=== PATIENT | female | born 1965 | race African-American/Black ===

== ENCOUNTER → 2023-12-12 08:03 | Outpatient (REF) | payer OTHER, SELFPAY | LOC: WDC 08:03 | PROVIDERS: ATTENDING PHYSICIAN Family Medicine | DX: R92.8 Other abnormal and inconclusive findings on diagnostic imaging of breast (principal); N60.02 Solitary cyst of left breast | CPT/HCPCS: 76642 ==

== ENCOUNTER 2024-01-23 21:23 | Emergency (ER) | payer OTHER, SELFPAY ==
[2024-01-23 21:30] VITALS: BP 177/94
[2024-01-23 22:08] LABS: % Basophils 0.4 % (0-2); % Eosinophils 3.3 % (0-6); % Immature Granulocytes 0.1 % (0-0.5); % Lymphocytes 32.4 % (20.5-51.1); % Monocytes 6.6 % (1.7-9.3); % Neutrophils 57.2 % (42.2-75.2); Absolute Eosinophils 0.2 10^3/uL (0-0.7); Absolute Lymphocytes 2.2 10^3/uL (1.2-3.4); Absolute Monocytes 0.4 10^3/uL (0.1-0.6); Absolute Neutrophils 3.8 10^3/uL (1.4-6.5); Hematocrit 36.5 % (37.0-47.0); Hemoglobin 12.5 g/dL (12.0-16.0); Mean Corp Hgb Conc. 34.2 g/dL (33.0-37.0); Mean Corpuscular Hgb 27.4 pg (27.0-31.0); Mean Platelet Volume 10.3 fL (7.4-10.4); Nucleated Red Blood Cells % 0 %; Platelet Count 205 10^3/uL (130-400); Red Blood Cell Count 4.56 10^6/uL (4.20-5.40); Red Cell Dist. Width 13.2 % (11.5-14.5); White Blood Cell Count 6.7 10^3/uL (4.8-10.8)
[2024-01-23 22:13] LABS: ALT (SGPT) 44 U/L (0-35); AST (SGOT) 43 U/L (14-36); Albumin 4.3 g/dl (3.5-5.0); Alkaline Phosphatase 119 U/L (38-126); Blood Urea Nitrogen 15 mg/dl (7-17); Calcium 10.1 mg/dl (8.4-10.2); Carbon Dioxide 23 mmol/L (22-30); Chloride 104 mmol/L (98-107); Glucose 279 mg/dl (70-99); Potassium 3.7 mmol/L (3.5-5.1); Sodium 138 mmol/L (135-145); Total Bilirubin 0.3 mg/dl (0.2-1.3); Total Protein 7.1 g/dl (6.3-8.2); eGFR > 60.00
--- NOTE | 2024-01-23 22:15 | ED.GENMED ---
History of Present Illness
General
Chief Complaint: Chest Pain
Source: patient
Exam Limitations: none
Time Seen by Provider: 01/23/24 21:45
Nursing documentation reviewed up to this point in time: agreed with
Travel History
Have you had any contact with someone who has COVID-19?: No
Do you have any symptoms of coronavirus? Fever > 100 degrees, chills, cough, shortness of breath, sore throat, loss of taste or smell, muscle aches, or headache?: No
History of Present Illness
History of Present Illness:
The patient is a very pleasant 58-year-old female who reports intermittent chest pain since yesterday. Patient describes it as a pressure in her left chest. Is nonradiating. Patient reports it is not necessarily associated with breathing, eating
or movement. She denies any shortness of breath and cough. She denies history of PE and DVT.
Past History
Past History
ED Past Medical History: HTN, NIDDM and Other (Breast cancer, status postlumpectomy)
ED Past Surgical History: Gynecological (Left breast Lumpectomy), Orthopedic (Right rotator cuff repair) and Other (cataracts)
Social History
Tobacco: Non-smoker
Alcohol: None
Drug: None
Personal:
Living: with family
Employment: Other
Family History
Family History: Other
Review of Systems
Review of Systems
Allergies reviewed?: Yes
All Other Systems: ROS reviewed and negative except as documented in HPI and ROS
Constitutional: Reports no symptoms
EENT: Reports no symptoms
Respiratory: Reports no symptoms
Cardiac: Reports chest pain
ABD/GI: Reports no symptoms
: Reports no symptoms
Musculoskeletal: Reports no symptoms
Skin: Reports no symptoms
Neurological: Reports no symptoms
Endocrine: Reports no symptoms
Hematologic/Lymphatic: Reports no symptoms
Psychiatric: Reports no symptoms
Phy Exam
Physical Exam
Physical Exam:
Physical Exam
General: no apparent distress, not acutely ill , well and comfortable appearing
Neck: supple. no meningeal signs. normal psoterior pharynx
Heart: s1/s2 regular rate and rhythm, no murmur. equal radial pulses.
Lungs: no acute respiratory distress. clear bilaterally
Abdomen: normal bowel sounds. not tender. no CVAT. No pulsatile mass
Neuro: alert and oriented. no focal neurological deficits
Skin: no rash
Psychiatric: well kept. interactive and cooperative
Extremities: no edema. no calf tenderness. negative homans. good distal pulses
Scores
Heart Score for Chest Pain Patients
STEMI patient?: No
History: Slightly or Non-Suspicious
ECG: Nonspecific Repolarization
Age: >45 - <65 years
Risk Factors: >/= 3 Risk Factors or History of CAD
Troponin: </= Normal Limit
Heart Score for Chest Pain Patients: 4
Heart Score Risk: 20.3% MACE over next 6 weeks
Course
Orders/Labs/Results
Orders:
Orders
01/23/24 21:24
Electrocardiogram (*1) Urgent
Reason for Study: Shortness of Breath
EKG- Treatment ONCE
01/23/24 21:53
Complete Blood Count/With Diff Urgent
Comprehensive Metabolic Panel Urgent
01/23/24 22:38
D-Dimer Urgent
Troponin I Urgent
01/23/24 23:14
CR Chest - 2 Views Urgent
Comment:
Reason For Exam: CP
Abnormal Lab Results
01/23/24
21:53
Hct 36.5 L %
(37.0-47.0)
MCV 80.0 L fL
(81.0-99.0)
Glucose 279 H mg/dl
(70-99)
AST 43 H U/L
(14-36)
ALT 44 H U/L
(0-35)
01/23/24 21:53
01/23/24 21:53
Vital Signs
Initial and Last Documented VS:
Initial Vital Signs
Temp Pulse Resp BP Pulse Ox
98.2 F 93 18 177/94 98
01/23/24 21:30 01/23/24 21:30 01/23/24 21:30 01/23/24 21:30 01/23/24 21:30
Last Documented Vital Signs
Temp Pulse Resp BP Pulse Ox
98.2 F 96 16 182/93 100
01/23/24 21:30 01/23/24 23:00 01/23/24 23:00 01/23/24 23:00 01/23/24 23:00
MDM/Problems Addressed
Differential Diagnosis Includes:
Acute coronary syndrome, PE, gastritis
MDM/Problems Addressed:
Patient presents with acute chest pain
Chronic conditions affecting care: DM and HTN
Acute Exacerbation and/or Progression of Chronic Illness:
Given patient is acutely hyperglycemic and hypertensive, she is at increased risk of acute coronary syndrome
*Radiology
Radiology exam reviewed: preliminary read by ED provider (Chest x-ray read by me. No acute disease)
*Pulse Oximetry
Patient hypoxic: no
*EKG
Interpreted by ED Provider?: Yes
Interpretation: abnormal
Comparison EKG: no changes
Rate: normal
Rhythm: sinus
[place]: left axis deviation
Interval: normal interval
QRS Pattern: left vent hypertrophy
Ischemia: non-specific ST changes
*[employer] Interpretation
Rate: normal
Interpretation: normal
Rhythm: sinus
*Critical Care Note
Total Time (30-74mins, 75-104mins- exclusive of procedures): Not Applicable
Update Note
Update Note:
11:40 PM patient has been resting comfortably for hours, is conversational and smiling. EKG shows no acute changes. Troponin is normal. D-dimer is normal. Chest x-ray appears normal. Patient will be referred to chest pain hotline. In addition,
patient has a primary care appointment this coming Sunday.
ED Attending Note
-
Portions of this chart may have been created with voice recognition software.� Occasional wrong word or��sound alike� substitutions may have occurred due to the inherent limitations of voice recognition software.
Discharge Plan
Departure
Patient Disposition: Home (Routine Discharge)
Date of Disposition: 01/23/24
Time of Disposition: 23:40
Patient with high blood pressure during this ER visit?: Yes
Condition: Good
Covid-19: Not Applicable
Discharge Problem:
Chest pain in adult
Instructions: Chest Pain DCA Follow Up, BLOOD PRESSURE
Prescriptions:
No Action
cephalexin 500 mg capsule
500 mg PO TID 7 Days Qty: 21 0RF
naproxen 500 mg tablet
500 mg PO BID 10 Days Qty: 20 0RF
anastrozole 1 mg Tablet
1 mg PO DAILY
atenolol 25 mg Tablet
25 mg PO DAILY
metformin 1,000 mg Tablet
1,000 mg PO BID
amlodipine-valsartan 5-160 mg Tablet
1 tab PO DAILY
aspirin 81 mg Tablet
81 mg PO DAILY
albuterol sulfate 90 mcg/actuation HFA aerosol inhaler
2 puff INHALATION Q4H PRN (Reason: SHORTNESS OF BREATH )
hydrochlorothiazide 12.5 mg capsule
12.5 mg PO DAILY Qty: 30 0RF
Fluzone Quad [id number] (PF) 60 mcg (15 mcg x 4)/0.5 mL Syringe
0.5 ml IM .ONCE Qty: 5 0RF
Referrals:
Jordyn Moyer MD [Active] -
Myesha Light MD [Family Provider] -
Interventions
Interventions:
*Risk Screen - Suicide Last Done: 01/23/24 21:30
*General Assessment Last Done: 01/23/24 21:30
*Neglect/Abuse Screening Last Done: 01/23/24 21:30
ED- Cardiac Assessment Last Done: 01/23/24 21:50
Discharge Date and Time
Print Language: UKRAINIAN
[2024-01-23 23:00] VITALS: BP 182/93
[2024-01-23 23:03] LABS: D-Dimer < 0.27 ug/mlFEU (0.00-0.50)
[2024-01-23 23:08] LABS: Troponin I 0.014 ng/ml
== END 2024-01-24 00:01 | disposition home or self-care (01) ==
LOC: EMR 21:23
PROVIDERS: EMERGENCY PHYSICIAN Emergency Medicine; FAMILY PHYSICIAN Family Medicine
DX: R07.89 Other chest pain (principal); I10 Essential (primary) hypertension; E11.36 Type 2 diabetes mellitus with diabetic cataract; I25.10 Atherosclerotic heart disease of native coronary artery without angina pectoris; Z85.3 Personal history of malignant neoplasm of breast
CPT/HCPCS: 99283; 71046; 80053; 84484; 85025; 85379; 93005

== ENCOUNTER 2024-02-15 13:42 | Emergency (ER) | payer OTHER, SELFPAY ==
[2024-02-15 13:44] VITALS: BP 201/106
--- NOTE | 2024-02-15 15:22 | ED.GENMED ---
History of Present Illness
General
Chief Complaint: Cold/Flu/URI Symptoms
Source: patient
Exam Limitations: none
Time Seen by Provider: 02/15/24 15:11
Nursing documentation reviewed up to this point in time: agreed with
History of Present Illness
History of Present Illness:
Patient to ED with complaint of worsening cough. States she has had cold symptoms since sunday. Now feeling lightheaded and cough continues to worsen. INitially had a fever but that has resolved. Denies any SOB, n/v/d. No sick contacts. States
she was recently seen by her PCP for cp and found to have a new murmur. She is scheduled for a nuclear stress test. Advised by PCP to come to ED. No CP with these symptoms. Brought self to ED for eval
Past History
Past History
ED Past Medical History: Cancer (Breast), HTN, NIDDM and Other (Breast cancer, status postlumpectomy)
ED Past Surgical History: Gynecological (Left breast Lumpectomy), Orthopedic (Right rotator cuff repair) and Other (cataracts)
Social History
Tobacco: Non-smoker
Alcohol: None
Drug: None
Personal:
Living: with family
Employment: Other
Family History
Family History: Other
Review of Systems
Review of Systems
Allergies reviewed?: Yes
All Other Systems: ROS reviewed and negative except as documented in HPI and ROS
Constitutional: Reports no symptoms
EENT: Reports runny nose
Respiratory: Reports cough
Cardiac: Reports no symptoms
ABD/GI: Reports no symptoms
: Reports no symptoms
Musculoskeletal: Reports no symptoms
Skin: Reports no symptoms
Neurological: Reports weakness
Psychiatric: Reports no symptoms
Phy Exam
General Physical Exam
General Presentation: well appearing and no apparent distress
General age: appears stated age
General Skin: warm and dry
General Habitus: normal
General Mental: alert
Cardiovascular Exam
Cardiovascular Exam: regular rate/rhythm and no edema
Pulmonary Exam
Pulmonary Exam: no respiratory distress and chest non tender
Cough: coarse cough
Breath Sounds: Rhonchi: generalized (scattered)
Musculoskeletal Exam
Musculoskeletal Exam: full ROM and neuro vasc intact
Skin Exam
Skin Exam: normal color, warm/dry and no rash
Psychiatric Exam
Psychiatric Exam: normal mood/affect
Course
Orders/Labs/Results
Orders:
Orders
02/15/24 13:47
EKG [Electrocardiogram (*1)] Urgent
Reason for Study: Vertigo / Dizzy
EKG- Treatment ONCE
02/15/24 15:21
Ipratropium/Albuterol Sulfate [Duoneb] 3 ml INH R NOW STA
CR Chest - 2 Views Urgent
Comment:
Reason For Exam: cough
02/15/24 15:46
COVID-19 Antigen Urgent
Source: Nasal Swab
Complete Blood Count/With Diff Urgent
02/15/24 16:44
Comprehensive Metabolic Panel Urgent
02/15/24 17:52
Potassium Chloride Powder [Klor-Con] 40 meq PO NOW STA
Abnormal Lab Results
02/15/24 02/15/24
15:46 16:44
MPV 10.7 H fL
(7.4-10.4)
Immature Gran % 0.6 H %
(0-0.5)
Neutrophils % 42.0 L %
(42.2-75.2)
Potassium 3.3 L mmol/L
(3.5-5.1)
Carbon Dioxide 21 L mmol/L
(22-30)
Creatinine 0.5 L mg/dL
(0.6-1.0)
Glucose 104 H mg/dl
(70-99)
Calcium 10.6 H mg/dl
(8.4-10.2)
AST 72 H U/L
(14-36)
ALT 62 H U/L
(0-35)
02/15/24 15:46
02/15/24 16:44
Vital Signs
Initial and Last Documented VS:
Initial Vital Signs
Temp Pulse Resp BP Pulse Ox
98.4 F 92 18 201/106 98
02/15/24 13:44 02/15/24 13:44 02/15/24 13:44 02/15/24 13:44 02/15/24 13:44
Last Documented Vital Signs
Temp Pulse Resp BP Pulse Ox
98.4 F 94 16 168/85 98
02/15/24 13:44 02/15/24 16:15 02/15/24 16:15 02/15/24 16:12 02/15/24 16:15
*Radiology
Radiology exam reviewed: radiology read reviewed
*Pulse Oximetry
Patient hypoxic: no
*Critical Care Note
Total Time (30-74mins, 75-104mins- exclusive of procedures): Not Applicable
Update Note
Update Note:
Improved withnebulizer treatment. CXR neg for pneumonia. Will discharge home and continue albuterol nebulizer q4hr prn. Close follow upw ith PCP. Given instrutins on s/s to return to ED and she is agreeable to plan.,
ED Attending Note
-
Portions of this chart may have been created with voice recognition software.� Occasional wrong word or��sound alike� substitutions may have occurred due to the inherent limitations of voice recognition software.
Discharge Plan
Departure
Patient Disposition: Home (Routine Discharge)
Date of Disposition: 02/15/24
Time of Disposition: 17:55
Patient with high blood pressure during this ER visit?: No
Condition: Good
Covid-19: Not Applicable
Discharge Problem:
Bronchitis
Instructions: Acute Bronchitis, Adult (DC)
Prescriptions:
New
albuterol sulfate 2.5 mg /3 mL (0.083 %) solution for nebulization
2.5 mg inhalation Q4H PRN (Reason: shortness of breath or wheezing) Qty: 90 0RF
No Action
cephalexin 500 mg capsule
500 mg PO TID 7 Days Qty: 21 0RF
naproxen 500 mg tablet
500 mg PO BID 10 Days Qty: 20 0RF
anastrozole 1 mg Tablet
1 mg PO DAILY
atenolol 25 mg Tablet
25 mg PO DAILY
metformin 1,000 mg Tablet
1,000 mg PO BID
amlodipine-valsartan 5-160 mg Tablet
1 tab PO DAILY
aspirin 81 mg Tablet
81 mg PO DAILY
albuterol sulfate 90 mcg/actuation HFA aerosol inhaler
2 puff INHALATION Q4H PRN (Reason: SHORTNESS OF BREATH )
hydrochlorothiazide 12.5 mg capsule
12.5 mg PO DAILY Qty: 30 0RF
Fluzone Quad [id number] (PF) 60 mcg (15 mcg x 4)/0.5 mL Syringe
0.5 ml IM .ONCE Qty: 5 0RF
Referrals:
Myesha Light MD [Family Provider] - Follow up in 2-3 days
Interventions
Interventions:
*Risk Screen - Suicide Last Done: 02/15/24 18:21
*General Assessment Last Done: 02/15/24 13:44
*Neglect/Abuse Screening Last Done: 02/15/24 18:21
ED- Fall Risk Assessment Last Done: 02/15/24 16:45
*ED COVID-19 Vaccine History Last Done: 02/15/24 13:44
*Nursing Disposition Last Done: 02/15/24 18:21
ED- Pulmonary Assessment Last Done: 02/15/24 16:45
Discharge Date and Time
Discharge Date/Time: 02/15/24 18:22
Print Language: PANAMANIAN
[2024-02-15] MEDS: DUONEB 3 ML INH (15:47)
[2024-02-15 16:06] LABS: % Basophils 0.4 % (0-2); % Eosinophils 4.2 % (0-6); % Immature Granulocytes 0.6 % (0-0.5); % Lymphocytes 44.5 % (20.5-51.1); % Monocytes 8.3 % (1.7-9.3); Absolute Eosinophils 0.2 10^3/uL (0-0.7); Absolute Lymphocytes 2.2 10^3/uL (1.2-3.4); Absolute Monocytes 0.4 10^3/uL (0.1-0.6); Absolute Neutrophils 2.1 10^3/uL (1.4-6.5); Hematocrit 39.4 % (37.0-47.0); Hemoglobin 13.3 g/dL (12.0-16.0); Mean Corp Hgb Conc. 33.8 g/dL (33.0-37.0); Mean Corpuscular Hgb 27.7 pg (27.0-31.0); Mean Corpuscular Volume 82.1 fL (81.0-99.0); Mean Platelet Volume 10.7 fL (7.4-10.4); Nucleated Red Blood Cells % 0 %; Platelet Count 232 10^3/uL (130-400); Red Cell Dist. Width 12.9 % (11.5-14.5)
[2024-02-15 16:12] VITALS: BP 168/85
[2024-02-15 16:19] LABS: COVID-19 Antigen Negative (Negative)
[2024-02-15 17:42] LABS: ALT (SGPT) 62 U/L (0-35); AST (SGOT) 72 U/L (14-36); Albumin 4.9 g/dl (3.5-5.0); Alkaline Phosphatase 121 U/L (38-126); Blood Urea Nitrogen 12 mg/dl (7-17); Calcium 10.6 mg/dl (8.4-10.2); Carbon Dioxide 21 mmol/L (22-30); Chloride 105 mmol/L (98-107); Glucose 104 mg/dl (70-99); Potassium 3.3 mmol/L (3.5-5.1); Sodium 141 mmol/L (135-145); Total Bilirubin 0.5 mg/dl (0.2-1.3); eGFR > 60.00
[2024-02-15] MEDS: KLOR-CON 40 MEQ PO (17:57)
== END 2024-02-15 18:22 | disposition home or self-care (01) ==
LOC: EMR 13:42
PROVIDERS: Nurse Practitioner; EMERGENCY PHYSICIAN Emergency Medicine; FAMILY PHYSICIAN Family Medicine
DX: J40 Bronchitis, not specified as acute or chronic (principal); R01.1 Cardiac murmur, unspecified; I10 Essential (primary) hypertension; E11.36 Type 2 diabetes mellitus with diabetic cataract; Z85.3 Personal history of malignant neoplasm of breast
CPT/HCPCS: 99283; 94640; 71046; 80053; 85025; 87811; 93005

== ENCOUNTER → 2024-03-17 07:55 | Outpatient (REF) | payer OTHER, SELFPAY | LOC: DHCBC/DCA 07:55 | PROVIDERS: ATTENDING PHYSICIAN Internal Medicine Cardiovascular Disease; FAMILY PHYSICIAN Family Medicine | DX: I34.0 Nonrheumatic mitral (valve) insufficiency (principal) | CPT/HCPCS: 78452; 93017; A9500 ==

== ENCOUNTER → 2024-03-22 14:20 | Outpatient (REF) | payer OTHER, SELFPAY | LOC: WDC 14:20 | PROVIDERS: ATTENDING PHYSICIAN Family Medicine | DX: Z12.31 Encounter for screening mammogram for malignant neoplasm of breast (principal) | CPT/HCPCS: 77063; 77067 ==

== ENCOUNTER 2024-04-18 18:51 | Emergency (ER) | payer OTHER, SELFPAY ==
[2024-04-18 18:55] VITALS: BP 188/105
[2024-04-18 20:59] VITALS: BMI 28.9
[2024-04-18 21:04] VITALS: BP 193/94
[2024-04-18 21:18] LABS: % Basophils 0.3 % (0-2); % Eosinophils 0.2 % (0-6); % Immature Granulocytes 0.3 % (0-0.5); % Lymphocytes 7.3 % (20.5-51.1); % Monocytes 9.6 % (1.7-9.3); % Neutrophils 82.3 % (42.2-75.2); Absolute Lymphocytes 0.4 10^3/uL (1.2-3.4); Absolute Monocytes 0.6 10^3/uL (0.1-0.6); Hematocrit 37.1 % (37.0-47.0); Hemoglobin 12.5 g/dL (12.0-16.0); Mean Corp Hgb Conc. 33.7 g/dL (33.0-37.0); Mean Corpuscular Hgb 26.8 pg (27.0-31.0); Mean Corpuscular Volume 79.4 fL (81.0-99.0); Mean Platelet Volume 10.7 fL (7.4-10.4); Nucleated Red Blood Cells % 0 %; Platelet Count 191 10^3/uL (130-400); Red Blood Cell Count 4.67 10^6/uL (4.20-5.40); Red Cell Dist. Width 13.3 % (11.5-14.5)
[2024-04-18 21:34] LABS: ALT (SGPT) 89 U/L (0-35); AST (SGOT) 135 U/L (14-36); Albumin 4.7 g/dl (3.5-5.0); Alkaline Phosphatase 104 U/L (38-126); Blood Urea Nitrogen 7 mg/dl (7-17); Carbon Dioxide 22 mmol/L (22-30); Chloride 101 mmol/L (98-107); Estimated Creatinine Clearance 92 ml/min; Glucose 142 mg/dl (70-99); Potassium 3.7 mmol/L (3.5-5.1); Sodium 138 mmol/L (135-145); Total Bilirubin 0.4 mg/dl (0.2-1.3); Total Protein 7.3 g/dl (6.3-8.2); eGFR > 60.00
[2024-04-18] MEDS: TYLENOL 1000 MG PO (22:06)
[2024-04-18] MEDS: DECADRON 10 MG IV (22:07)
[2024-04-18] MEDS: DUONEB 3 ML INH (22:07)
[2024-04-18] MEDS: NSS 1000 IV (22:09)
--- NOTE | 2024-04-18 22:14 | ED.GENMED ---
History of Present Illness
General
Chief Complaint: Breathing Problem
Source: patient and family
Exam Limitations: none
Time Seen by Provider: 04/18/24 21:41
Nursing documentation reviewed up to this point in time: agreed with
History of Present Illness
History of Present Illness:
59-year-old female hypertension breast cancer diabetes presents with fatigue shortness of breath confusion fever diagnosed with COVID by home test the past day or so child was sick with similar illness last week decreased p.o. intake today, my
evaluation she looks tired resting comfortably easily arousable low-grade fever slight tachypnea
Past History
Past History
ED Past Medical History: Cancer (Breast), HTN, NIDDM and Other (Breast cancer, status postlumpectomy)
ED Past Surgical History: Gynecological (Left breast Lumpectomy), Orthopedic (Right rotator cuff repair) and Other (cataracts)
Social History
Tobacco: Non-smoker
Alcohol: None
Drug: None
Personal:
Living: with family
Employment: Other
Family History
Family History: Other
Review of Systems
Review of Systems
All Other Systems: Not applicable
Constitutional: Reports fever and fatigue
Respiratory: Reports cough and trouble breathing
Cardiac: Reports no symptoms
ABD/GI: Denies abdominal pain
: Reports no symptoms
Neurological: Reports weakness
Hematologic/Lymphatic: Reports no symptoms
Phy Exam
Physical Exam
Physical Exam:
Physical Exam
General: 59-year-old female febrile
Neck: No jaundice no photophobia
Heart: Tachycardic
Lungs: Bibasilar crackles
Abdomen: Nontender
Neuro: Locally weak moves all extremities cooperative
Skin: no rash
Psychiatric: cooperative
Extremities: no edema. no calf tenderness.
Scores
Heart Failure Risk
Heart Failure Risk Score: Not Applicable
Course
Orders/Labs/Results
Orders:
Orders
04/18/24 18:58
Electrocardiogram (*1) Urgent
Reason for Study: Shortness of Breath
04/18/24 18:59
EKG- Treatment ONCE
04/18/24 19:06
CR Chest - 2 Views Urgent
Comment:
Reason For Exam: SOB
04/18/24 21:09
Complete Blood Count/With Diff Urgent
Comprehensive Metabolic Panel Urgent
04/18/24 21:47
0.9% Sodium Chloride 1000 ml [Nss] 1,000 ml IV BOLUS
Acetaminophen [Tylenol] 1,000 mg PO NOW STA
Dexamethasone Sod Phosphate [Decadron] 10 mg IV NOW STA
Ipratropium/Albuterol Sulfate [Duoneb] 3 ml INH R NOW STA
Abnormal Lab Results
04/18/24
21:09
MCV 79.4 L fL
(81.0-99.0)
MCH 26.8 L pg
(27.0-31.0)
MPV 10.7 H fL
(7.4-10.4)
Absolute Lymphs (auto) 0.4 L 10^3/uL
(1.2-3.4)
Neutrophils % 82.3 H %
(42.2-75.2)
Lymphocytes % 7.3 L %
(20.5-51.1)
Monocytes % 9.6 H %
(1.7-9.3)
Creatinine 0.5 L mg/dL
(0.6-1.0)
Glucose 142 H mg/dl
(70-99)
AST 135 H U/L
(14-36)
ALT 89 H U/L
(0-35)
04/18/24 21:09
04/18/24 21:09
Vital Signs
Initial and Last Documented VS:
Initial Vital Signs
Temp Pulse Resp BP Pulse Ox
100.4 F H 125 20 188/105 98
04/18/24 18:55 04/18/24 18:55 04/18/24 18:55 04/18/24 18:55 04/18/24 18:55
Last Documented Vital Signs
Temp Pulse Resp BP Pulse Ox
99.5 F 112 13 193/94 98
04/18/24 21:11 04/18/24 21:04 04/18/24 21:04 04/18/24 21:04 04/18/24 21:04
MDM/Problems Addressed
Differential Diagnosis Includes:
COVID pneumonia bronchitis electrolyte abnormality dehydration
MDM/Problems Addressed:
Cough shortness of breath
Chronic conditions affecting care: DM, HTN and Cancer
Acute Exacerbation and/or Progression of Chronic Illness: DM, HTN and Cancer
*Radiology
Radiology exam reviewed: radiology read reviewed
*Pulse Oximetry
Patient hypoxic: no
*[employer] Interpretation
Rate: tachycardiac
Interpretation: abnormal
Heart Rate: 110
Rhythm: sinus
*Critical Care Note
Total Time (30-74mins, 75-104mins- exclusive of procedures): Not Applicable
Update Note
Update Note:
Update patient with COVID infection symptoms are mild to moderate
Will treat with fluids nebs steroids consideration for Paxlovid
ED Attending Note
-
Portions of this chart may have been created with voice recognition software.� Occasional wrong word or��sound alike� substitutions may have occurred due to the inherent limitations of voice recognition software.
Discharge Plan
Departure
Patient Disposition: Home (Routine Discharge)
Date of Disposition: 04/18/24
Time of Disposition: 22:18
Patient with high blood pressure during this ER visit?: No
Covid-19: Suspected COVID-19
Discharge Problem:
COVID-19
Instructions: COVID-19 in adults - Discharge instructions
Prescriptions:
New
albuterol sulfate [Proventil HFA] 90 mcg/actuation HFA aerosol inhaler
2 puff inhalation Q6H PRN (Reason: shortness of breath or wheezing) Qty: 8.5 0RF
Paxlovid 300 mg (150 mg x 2)-100 mg tablets,dose pack
See Rx Instructions .ROUTE .COMPLEX Qty: 30 0RF
Rx Instructions:
take TWO 150 mg tablets of nirmatrelvir with ONE 100 mg tablet of ritonavir twice daily for 5 days
No Action
cephalexin 500 mg capsule
500 mg PO TID 7 Days Qty: 21 0RF
naproxen 500 mg tablet
500 mg PO BID 10 Days Qty: 20 0RF
anastrozole 1 mg Tablet
1 mg PO DAILY
atenolol 25 mg Tablet
25 mg PO DAILY
metformin 1,000 mg Tablet
1,000 mg PO BID
amlodipine-valsartan 5-160 mg Tablet
1 tab PO DAILY
aspirin 81 mg Tablet
81 mg PO DAILY
albuterol sulfate 90 mcg/actuation HFA aerosol inhaler
2 puff INHALATION Q4H PRN (Reason: SHORTNESS OF BREATH )
hydrochlorothiazide 12.5 mg capsule
12.5 mg PO DAILY Qty: 30 0RF
Fluzone Quad [id number] (PF) 60 mcg (15 mcg x 4)/0.5 mL Syringe
0.5 ml IM .ONCE Qty: 5 0RF
albuterol sulfate 2.5 mg /3 mL (0.083 %) solution for nebulization
2.5 mg inhalation Q4H PRN (Reason: shortness of breath or wheezing) Qty: 90 0RF
Referrals:
Myesha Light MD [Family Provider] - Next open appointment
Activity Restrictions/Additional Instructions:
Tylenol every 4 hours, albuterol 2 puffs every 4-6 hours, treat plenty of fluids
Interventions
Interventions:
*Risk Screen - Suicide Last Done: 04/18/24 18:55
*General Assessment Last Done: 04/18/24 18:55
*Neglect/Abuse Screening Last Done: 04/18/24 18:55
ED- Fall Risk Assessment Last Done: 04/18/24 20:59
*ED COVID-19 Vaccine History Last Done: 04/18/24 20:59
ED- Cardiac Assessment Last Done: 04/18/24 21:12
ED- Pulmonary Assessment Last Done: 04/18/24 21:12
Discharge Date and Time
Print Language: CITIZ[place] OF [place]
[2024-04-18 23:30] VITALS: BP 183/89
== END 2024-04-18 23:15 | disposition home or self-care (01) ==
LOC: EMR 18:51
PROVIDERS: Emergency Medicine; EMERGENCY PHYSICIAN Emergency Medicine; FAMILY PHYSICIAN Family Medicine
DX: U07.1 COVID-19 (principal); R53.83 Other fatigue; R42 Dizziness and giddiness; R11.0 Nausea; R06.82 Tachypnea, not elsewhere classified; E11.36 Type 2 diabetes mellitus with diabetic cataract; I10 Essential (primary) hypertension; Z85.3 Personal history of malignant neoplasm of breast; Z79.82 Long term (current) use of aspirin; Z79.84 Long term (current) use of oral hypoglycemic drugs
CPT/HCPCS: 99285; 96374; 96361; 94640; 71046; 80053; 85025; 93005

== ENCOUNTER 2024-04-20 22:40 | Emergency (ER) | payer OTHER, SELFPAY ==
[2024-04-20 23:04] VITALS: BP 148/85
--- NOTE | 2024-04-21 00:19 | ED.GENMED ---
History of Present Illness
<HECTOR Dalton - Last Filed: 04/23/24 05:50>
General
Chief Complaint: Breathing Problem
Time Seen by Provider: 04/21/24 00:19
History of Present Illness
History of Present Illness:
Patient is a 59 year old female with a PMH of asthma, HTN and covid x 2 days presenting to the ED complaining of shortness of breath. The patient claims she was here on Sunday, diagnosed with covid and given Paxlovid. She has taken 3 Paxlovid and
claims the symptoms have not gone away. She has tried her albuterol inhaler PRN which mildly alleviated symptoms. The SOB was rated as mild by the patient and has only gotten a little better since Sunday. Patient also reports associated non
productive cough, fever, fatigue and confusion. The patient claims all of these symptoms have the same onset as the SOB when she came to the ED on Sunday. Patient denies chest pain or palpitations.
Patient is currently taking atenolol daily and amlodipine-valsartan for her blood pressure and has an albuterol inhaler PRN for her asthma. She denies any drinking or smoking.
Past History
<HECTOR Dalton - Last Filed: 04/23/24 05:50>
Past History
ED Past Medical History: Cancer (Breast), HTN, NIDDM and Other (Breast cancer, status postlumpectomy)
ED Past Surgical History: Gynecological (Left breast Lumpectomy), Orthopedic (Right rotator cuff repair) and Other (cataracts)
Social History
Tobacco: Non-smoker
Alcohol: None
Drug: None
Personal:
Living: with family
Employment: Other
Family History
Family History: Other
Review of Systems
<HECTOR Dalton - Last Filed: 04/23/24 05:50>
Review of Systems
Constitutional: Reports fever
Respiratory: Reports cough and trouble breathing
Cardiac: Reports no symptoms
Phy Exam
<HECTOR Dalton - Last Filed: 04/23/24 05:50>
Physical Exam
Physical Exam:
see physical
Cardiovascular Exam
Cardiovascular Exam: regular rate/rhythm, no edema, no gallop, no JVD and no murmur
Pulmonary Exam
Pulmonary Exam: lungs clear, no respiratory distress, no rales, chest non tender, no crackles, no rhonchi, no stridor, no wheezing and no cough
Respirations: controlled ventilations
Scores
<HECTOR Dalton - Last Filed: 04/23/24 05:50>
Heart Failure Risk
Heart Failure Risk Score: Not Applicable
Course
<HECTOR Dalton - Last Filed: 04/23/24 05:50>
Orders/Labs/Results
Orders:
Orders
04/21/24 01:05
Electrocardiogram (*1) Urgent
Reason for Study: Shortness of Breath
EKG- Treatment ONCE
0.9% Sodium Chloride 1000 ml [Nss] 1,000 ml IV BOLUS
Dexamethasone Sod Phosphate [Decadron] 10 mg IV NOW STA
Guaifenesin/Codeine Solution [Robitussin AC] 10 ml PO NOW STA
04/21/24 01:46
Complete Blood Count/With Diff Urgent
Comprehensive Metabolic Panel Urgent
Abnormal Lab Results
04/21/24
01:46
WBC 3.0 L 10^3/uL
(4.8-10.8)
MCV 79.5 L fL
(81.0-99.0)
MPV 10.6 H fL
(7.4-10.4)
Absolute Neuts (auto) 1.0 L 10^3/uL
(1.4-6.5)
Immature Gran % 0.7 H %
(0-0.5)
Neutrophils % 32.2 L %
(42.2-75.2)
Lymphocytes % 52.8 H %
(20.5-51.1)
Monocytes % 12.6 H %
(1.7-9.3)
Carbon Dioxide 21 L mmol/L
(22-30)
Glucose 111 H mg/dl
(70-99)
Calcium 10.4 H mg/dl
(8.4-10.2)
AST 51 H U/L
(14-36)
ALT 59 H U/L
(0-35)
04/21/24 01:46
04/21/24 01:46
Vital Signs
Initial and Last Documented VS:
Initial Vital Signs
Temp Pulse Resp BP Pulse Ox
97.9 F 73 16 148/85 99
04/20/24 23:04 04/20/24 23:04 04/20/24 23:04 04/20/24 23:04 04/20/24 23:04
Last Documented Vital Signs
Temp Pulse Resp BP Pulse Ox
97.9 F 80 20 150/83 98
04/20/24 23:04 04/21/24 03:31 04/21/24 03:31 04/21/24 03:26 04/21/24 03:26
<Maximilian Bernardo, DO - Last Filed: 04/21/24 03:23>
Orders/Labs/Results
Orders:
Orders
04/21/24 01:05
Electrocardiogram (*1) Urgent
Reason for Study: Shortness of Breath
EKG- Treatment ONCE
0.9% Sodium Chloride 1000 ml [Nss] 1,000 ml IV BOLUS
Dexamethasone Sod Phosphate [Decadron] 10 mg IV NOW STA
Guaifenesin/Codeine Solution [Robitussin AC] 10 ml PO NOW STA
04/21/24 01:46
Complete Blood Count/With Diff Urgent
Comprehensive Metabolic Panel Urgent
Abnormal Lab Results
04/21/24
01:46
WBC 3.0 L 10^3/uL
(4.8-10.8)
MCV 79.5 L fL
(81.0-99.0)
MPV 10.6 H fL
(7.4-10.4)
Absolute Neuts (auto) 1.0 L 10^3/uL
(1.4-6.5)
Immature Gran % 0.7 H %
(0-0.5)
Neutrophils % 32.2 L %
(42.2-75.2)
Lymphocytes % 52.8 H %
(20.5-51.1)
Monocytes % 12.6 H %
(1.7-9.3)
Carbon Dioxide 21 L mmol/L
(22-30)
Glucose 111 H mg/dl
(70-99)
Calcium 10.4 H mg/dl
(8.4-10.2)
AST 51 H U/L
(14-36)
ALT 59 H U/L
(0-35)
04/21/24 01:46
04/21/24 01:46
Vital Signs
Initial and Last Documented VS:
Initial Vital Signs
Temp Pulse Resp BP Pulse Ox
97.9 F 73 16 148/85 99
04/20/24 23:04 04/20/24 23:04 04/20/24 23:04 04/20/24 23:04 04/20/24 23:04
Last Documented Vital Signs
Temp Pulse Resp BP Pulse Ox
97.9 F 80 20 150/83 98
04/20/24 23:04 04/21/24 03:31 04/21/24 03:31 04/21/24 03:26 04/21/24 03:26
<Kevin Aysha, STPA - Last Filed: 04/23/24 05:50>
MDM/Problems Addressed
Differential Diagnosis Includes:
covid, asthma exacerbation, acute bronchitis
MDM/Problems Addressed:
order EKG and repeat blood work, give Decadron and cough medicine.
3:17a update patient is feeling better and will discharge
Chronic conditions affecting care: HTN and Asthma
<HECTOR Dalton - Last Filed: 04/23/24 05:50>
*Critical Care Note
Total Time (30-74mins, 75-104mins- exclusive of procedures): Not Applicable
<Maximilian Bernardo DO - Last Filed: 04/21/24 03:23>
*EKG
Interpreted by ED Provider?: Yes
Interpretation: normal (Sinus rhythm, normal axis, no STEMI)
ED Attending Note
<HECTOR Dalton - Last Filed: 04/23/24 05:50>
-
Portions of this chart may have been created with voice recognition software.� Occasional wrong word or��sound alike� substitutions may have occurred due to the inherent limitations of voice recognition software.
<Maximilian Bernardo DO - Last Filed: 04/21/24 03:23>
ED Attending Note
Patient seen and examined by attending physician: Yes
I performed the substantive portion of visit, reviewed & personally made and approve the management plan that is documented in note by myself or LARY.: Yes
ED Attending Note:
I have seen and evaluated the patient with a [id number] encounter. I have spoken to the advance practicer provider and involved in the medical history, the physical exam, medical decision making.
Evaluation and management service: agree unless noted differently below.
Results interpretation: agree unless noted differently below.
Focused HPI: 59-year-old female presenting with persistent cough and shortness of breath. She was recently evaluated in the emergency department a few days ago and diagnosed with COVID. At that time, she had chest x-ray and blood work. She was
started on Paxlovid. She does have an history of underlying asthma. Patient is more concerned that she still feels wiped out and symptoms of not improved
Physical exam: Sitting in bed comfortably. Prolonged expiratory phase. Bronchospastic cough. No wheezing. No leg edema
Medical Decision Making: Patient is still exhibiting signs of COVID. Given no hypoxia or tachycardia, doubt PE. Low utility in repeating chest x-ray. Given her underlying asthma with her bronchospastic cough, will give a dose of Decadron. Will
give cough medicine and IV fluids and continue to reassess
Update 3:20 AM patient feeling much better and feels comfortable going home
Discharge Plan
Departure
Patient Disposition: Home (Routine Discharge)
Date of Disposition: 04/21/24
Time of Disposition: 03:21
Patient with high blood pressure during this ER visit?: Yes
Discharge Problem:
COVID-19
Instructions: BLOOD PRESSURE
Prescriptions:
New
codeine-guaifenesin 10-100 mg/5 mL liquid
5 ml PO Q6H PRN (Reason: Cough) Qty: 200 0RF
No Action
cephalexin 500 mg capsule
500 mg PO TID 7 Days Qty: 21 0RF
naproxen 500 mg tablet
500 mg PO BID 10 Days Qty: 20 0RF
anastrozole 1 mg Tablet
1 mg PO DAILY
atenolol 25 mg Tablet
25 mg PO DAILY
metformin 1,000 mg Tablet
1,000 mg PO BID
amlodipine-valsartan 5-160 mg Tablet
1 tab PO DAILY
aspirin 81 mg Tablet
81 mg PO DAILY
albuterol sulfate 90 mcg/actuation HFA aerosol inhaler
2 puff INHALATION Q4H PRN (Reason: SHORTNESS OF BREATH )
hydrochlorothiazide 12.5 mg capsule
12.5 mg PO DAILY Qty: 30 0RF
Fluzone Quad [id number] (PF) 60 mcg (15 mcg x 4)/0.5 mL Syringe
0.5 ml IM .ONCE Qty: 5 0RF
albuterol sulfate 2.5 mg /3 mL (0.083 %) solution for nebulization
2.5 mg inhalation Q4H PRN (Reason: shortness of breath or wheezing) Qty: 90 0RF
albuterol sulfate [Proventil HFA] 90 mcg/actuation HFA aerosol inhaler
2 puff inhalation Q6H PRN (Reason: shortness of breath or wheezing) Qty: 8.5 0RF
Paxlovid 300 mg (150 mg x 2)-100 mg tablets,dose pack
See Rx Instructions .ROUTE .COMPLEX Qty: 30 0RF
Rx Instructions:
take TWO 150 mg tablets of nirmatrelvir with ONE 100 mg tablet of ritonavir twice daily for 5 days
Referrals:
PRIVATE,PHYSICIAN [Family Provider] -
Activity Restrictions/Additional Instructions:
Please return for any worsening symptoms.
You may return at any time if you have further concerns.
Please follow up with your doctor at the first available appointment, preferably this week.
Thank you for choosing [facility].
Interventions
Interventions:
*Risk Screen - Suicide Last Done: 04/20/24 23:04
*General Assessment Last Done: 04/20/24 23:04
*Neglect/Abuse Screening Last Done: 04/20/24 23:04
ED- Fall Risk Assessment Last Done: 04/21/24 03:35
*ED COVID-19 Vaccine History Last Done: 04/21/24 03:35
*Nursing Disposition Last Done: 04/21/24 03:35
ED- Cardiac Assessment Last Done: 04/21/24 01:16
ED- Pulmonary Assessment Last Done: 04/21/24 01:16
Discharge Date and Time
Discharge Date/Time: 04/21/24 03:37
Print Language: PAPUA [place]
[2024-04-21 01:15] VITALS: BP 150/83; BMI 30.8
[2024-04-21] MEDS: ROBITUSSIN AC 10 ML PO (01:23)
[2024-04-21] MEDS: NSS 1000 IV (01:44)
[2024-04-21] MEDS: DECADRON 10 MG IV (01:45)
[2024-04-21 01:59] LABS: % Basophils 0.7 % (0-2); % Immature Granulocytes 0.7 % (0-0.5); % Lymphocytes 52.8 % (20.5-51.1); % Monocytes 12.6 % (1.7-9.3); % Neutrophils 32.2 % (42.2-75.2); Absolute Lymphocytes 1.6 10^3/uL (1.2-3.4); Absolute Monocytes 0.4 10^3/uL (0.1-0.6); Hematocrit 37.7 % (37.0-47.0); Hemoglobin 12.8 g/dL (12.0-16.0); Mean Corpuscular Volume 79.5 fL (81.0-99.0); Mean Platelet Volume 10.6 fL (7.4-10.4); Nucleated Red Blood Cells % 0 %; Platelet Count 218 10^3/uL (130-400); Red Blood Cell Count 4.74 10^6/uL (4.20-5.40); Red Cell Dist. Width 13.6 % (11.5-14.5)
[2024-04-21 02:10] LABS: ALT (SGPT) 59 U/L (0-35); AST (SGOT) 51 U/L (14-36); Albumin 4.4 g/dl (3.5-5.0); Alkaline Phosphatase 91 U/L (38-126); Blood Urea Nitrogen 15 mg/dl (7-17); Calcium 10.4 mg/dl (8.4-10.2); Carbon Dioxide 21 mmol/L (22-30); Chloride 107 mmol/L (98-107); Estimated Creatinine Clearance 95 ml/min; Glucose 111 mg/dl (70-99); Potassium 3.5 mmol/L (3.5-5.1); Sodium 145 mmol/L (135-145); Total Bilirubin 0.3 mg/dl (0.2-1.3); Total Protein 6.9 g/dl (6.3-8.2); eGFR > 60.00
[2024-04-21 03:26] VITALS: BP 150/83
== END 2024-04-21 03:37 | disposition home or self-care (01) ==
LOC: EMR 22:40
PROVIDERS: EMERGENCY PHYSICIAN Student in an Organized Health Care Education/Training Program
DX: U07.1 COVID-19 (principal); I10 Essential (primary) hypertension; J45.909 Unspecified asthma, uncomplicated; E11.36 Type 2 diabetes mellitus with diabetic cataract; Z79.899 Other long term (current) drug therapy; Z85.3 Personal history of malignant neoplasm of breast
CPT/HCPCS: 99283; 96374; 96361; 80053; 85025; 93005

== ENCOUNTER → 2024-07-10 14:14 | Outpatient (REF) | payer OTHER, SELFPAY | LOC: WDC 14:14 | PROVIDERS: ATTENDING PHYSICIAN Family Medicine | DX: R92.8 Other abnormal and inconclusive findings on diagnostic imaging of breast (principal) | CPT/HCPCS: 76642 ==

== ENCOUNTER → 2025-03-04 09:17 | Outpatient (REF) | payer OTHER, SELFPAY | LOC: RAD 09:17 | PROVIDERS: ATTENDING PHYSICIAN Family Medicine | DX: M85.89 Other specified disorders of bone density and structure, multiple sites (principal) | CPT/HCPCS: 77080 ==

== ENCOUNTER 2025-06-06 20:25 | Emergency (ER) | payer OTHER, SELFPAY ==
[2025-06-06 20:29] VITALS: BP 178/107
[2025-06-06 23:38] VITALS: BMI 31.6
[2025-06-06 23:55] VITALS: BP 182/87
[2025-06-07 00:18] VITALS: BP 184/99
--- NOTE | 2025-06-07 00:36 | ED.GENMED ---
History of Present Illness
General
Chief Complaint: Eye Problems
Source: patient
Exam Limitations: none
Time Seen by Provider: 06/06/25 23:56
Nursing documentation reviewed up to this point in time: agreed with
History of Present Illness
History of Present Illness:
Note:
CHIEF COMPLAINT(S)
Visual disturbance described as 'lightning' without associated pain.
HISTORY OF PRESENT ILLNESS
The patient is a 60-year-old female who presents with visual disturbances characterized as 'lightning.' The symptoms began on and are not associated with pain. The episodes are described as intermittent. The patient mentioned that covering
one eye sometimes alleviates the symptoms. The onset of symptoms was sudden, occurring while the patient was not engaged in any particular activity. There is a concern for possible retinal detachment.
PAST MEDICAL AND SURGICAL HISTORY
The patient has a history of cataract surgery performed by Dr. Rosenthal, an inspector filters.
CHRONIC MEDICAL CONDITIONS SIGNIFICANTLY AFFECTING CARE
Hypertension, currently managed with atenolol and amlodipine, although the exact dosage of amlodipine is unspecified. The patient reports recent elevated blood pressure readings.
MEDICATIONS
The patient is currently on atenolol and amlodipine for hypertension; the specific dose of amlodipine is unknown.
REVIEW OF SYSTEMS
- Vision: Reports 'lightning' visual disturbance without pain. Covers one eye which occasionally helps with symptoms.
- Cardiovascular: Recent elevated blood pressure noted.
PHYSICAL EXAM
General: Alert, no acute distress.
Skin: Warm, dry.
Head: Normocephalic, atraumatic.
Neck: Supple, trachea midline.
Eyes, ears, nose, mouth, and throat: Oral mucosa moist.
Cardiovascular: Normal peripheral perfusion, No edema.
Respiratory: Respirations are non-labored.
Gastrointestinal: Abdomen nondistended.
Back: Normal range of motion, Normal alignment.
Musculoskeletal: Normal range of motion, normal strength.
Neurological: Alert and oriented to person, place, time, and situation, No focal neurological deficit observed.
Psychiatric: Cooperative, appropriate mood & affect.
PLAN
- Arrange for an ophthalmology consultation for potential retinal detachment and further evaluation of the visual symptoms.
- Monitor and possibly adjust blood pressure medications, given the recent elevated levels.
DIFFERENTIAL DIAGNOSIS
The Differential Diagnosis includes, in no particular order and is not limited to:
1. Retinal detachment
2. Ocular migraine
3. Posterior vitreous detachment
4. Transient ischemic attack
5. Hypertensive retinopathy
6. Acute glaucoma
7. Central retinal artery occlusion
8. Central serous chorioretinopathy
9. Optic neuritis
10. Amaurosis fugax
CARE-UPDATE
06/07/25 - 00:36
Patient exhibits normal visual acuities, and head CT results are normal. Blood pressure remains elevated; a dose of atenolol has been administered, and 50 mg of atenolol has been prescribed. Suspecting vitreous floaters with a potential risk of
retinal detachment, though no current visual acuity or field deficits observed. The patient is advised to contact Dr. Rosenthal, her inspector filters, in the morning for further evaluation.
Disposition:
SUMMARY OF ENCOUNTER
The patient, a 60-year-old female, presented to the emergency department with visual disturbances described as 'lightning' without associated pain. There was a concern for possible retinal detachment. The patient has a history of hypertension and
cataract surgery. Visual acuities were normal, and a head CT scan showed no abnormalities. Neurological examination revealed no deficits. The patient reported recent elevated blood pressure readings, leading to an increase in her atenolol dose to
manage hypertension more effectively.
DISPOSITION
Discharge.
ASSESSMENT
Suspected vitreous floaters with a potential risk for retinal detachment. The patient displays no current visual acuity or field deficits. Elevated blood pressure.
PLAN
The patient is to follow up with her inspector filters, Dr. Esha Rosenthal, to evaluate the risk and presence of retinal detachment. Blood pressure management will involve increasing the atenolol dose to 50 mg daily. The patient will also follow up
with her primary care physician.
INDEPENDENT REVIEW OF LABS AND INTERPRETATION OF TESTS
My independent review of the head CT indicates normal results with no evidence of acute intracranial pathology.
PATIENT EDUCATION AND COUNSELING
The patient was informed of the suspected diagnosis of vitreous floaters and the importance of following up with her inspector filters promptly to rule out any retinal detachment. She was also advised regarding the adjustment in her hypertension
medication and the need for monitoring her blood pressure regularly.
FOLLOW-UP INSTRUCTIONS
The patient should call the ophthalmology office tomorrow morning to schedule a follow-up appointment and also arrange a follow-up visit with her primary care physician for continued hypertension management.
MEDICATION RECONCILIATION
Atenolol 50 mg daily.
MEDICAL DECISION MAKING
-Complexity of Data Reviewed: Chronic conditions affecting care include hypertension.
Differential diagnosis includes retinal detachment, ocular migraine, posterior vitreous detachment, transient ischemic attack, hypertensive retinopathy, acute glaucoma, central retinal artery occlusion, central serous chorioretinopathy, optic
neuritis, and amaurosis fugax.
-Data:
Category 1
My independent interpretation of the head CT shows normal results.
-Risk:
Prescription medication was prescribed (Atenolol 50 mg daily).
DIAGNOSIS
1. Vitreous floaters (H43.39)
2. Elevated blood pressure/hypertension (I10)
Past History
Past History
ED Past Medical History: Cancer (Breast), HTN, NIDDM and Other (Breast cancer, status postlumpectomy)
ED Past Surgical History: Gynecological (Left breast Lumpectomy), Orthopedic (Right rotator cuff repair) and Other (cataracts)
Social History
Tobacco: Non-smoker
Alcohol: None
Drug: None
Personal:
Living: with family
Employment: Other
Family History
Family History: Other
Phy Exam
Physical Exam
Physical Exam:
.
Eye Exam
Eye Exam: PERRL, EOMI, cornea clear, conjunctiva normal, globe normal, visual acuity normal and visual tai normal
Able to obtain acuity?: Yes
Right 20/: 16
Left 20/: 16
Both 20/: 16
Pupil Exam: Bilateral: round and reactive
Conjunctival Changes: bilateral: none
Course
Orders/Labs/Results
Orders:
Orders
06/06/25 20:33
CT Head W/o Iv Contrast Urgent
Comment:
Reason For Exam: headache, flashes in L eye
06/07/25 00:36
Atenolol [Tenormin] 25 mg PO NOW STA
06/07/25 00:38
Atenolol [Tenormin] 25 mg PO NOW STA
Vital Signs
Initial and Last Documented VS:
Initial Vital Signs
Temp Pulse Resp BP Pulse Ox
98.6 F 92 16 178/107 99
06/06/25 20:29 06/06/25 20:29 06/06/25 20:29 06/06/25 20:29 06/06/25 20:29
Last Documented Vital Signs
Temp Pulse Resp BP Pulse Ox
98.6 F 92 16 182/87 96
06/06/25 20:29 06/06/25 20:29 06/06/25 20:29 06/06/25 23:55 06/07/25 00:36
*Pulse Oximetry
SaO2: 96
Oxygen Mode of Delivery: Room air
Patient hypoxic: no
*Critical Care Note
Total Time (30-74mins, 75-104mins- exclusive of procedures): Not Applicable
ED Attending Note
-
Portions of this chart may have been created with voice recognition software.� Occasional wrong word or��sound alike� substitutions may have occurred due to the inherent limitations of voice recognition software.
Discharge Plan
Departure
Patient Disposition: Home (Routine Discharge)
Date of Disposition: 06/07/25
Time of Disposition: 00:30
Patient with high blood pressure during this ER visit?: Yes
Condition: Good
Discharge Problem:
Vitreous floaters of left eye, HTN (hypertension)
Instructions: Floaters in the Eye, BLOOD PRESSURE
Prescriptions:
New
atenolol 50 mg tablet
50 mg PO DAILY Qty: 30 0RF
No Action
cephalexin 500 mg capsule
500 mg PO TID 7 Days Qty: 21 0RF
naproxen 500 mg tablet
500 mg PO BID 10 Days Qty: 20 0RF
anastrozole 1 mg Tablet
1 mg PO DAILY
atenolol 25 mg Tablet
25 mg PO DAILY
metformin 1,000 mg Tablet
1,000 mg PO BID
amlodipine-valsartan 5-160 mg Tablet
1 tab PO DAILY
aspirin 81 mg Tablet
81 mg PO DAILY
albuterol sulfate 90 mcg/actuation HFA aerosol inhaler
2 puff INHALATION Q4H PRN (Reason: SHORTNESS OF BREATH )
hydrochlorothiazide 12.5 mg capsule
12.5 mg PO DAILY Qty: 30 0RF
Fluzone Quad [id number] (PF) 60 mcg (15 mcg x 4)/0.5 mL Syringe
0.5 ml IM .ONCE Qty: 5 0RF
albuterol sulfate 2.5 mg /3 mL (0.083 %) solution for nebulization
2.5 mg inhalation Q4H PRN (Reason: shortness of breath or wheezing) Qty: 90 0RF
albuterol sulfate [Proventil HFA] 90 mcg/actuation HFA aerosol inhaler
2 puff inhalation Q6H PRN (Reason: shortness of breath or wheezing) Qty: 8.5 0RF
Paxlovid 300 mg (150 mg x 2)-100 mg tablets,dose pack
See Rx Instructions .ROUTE .COMPLEX Qty: 30 0RF
Rx Instructions:
take TWO 150 mg tablets of nirmatrelvir with ONE 100 mg tablet of ritonavir twice daily for 5 days
codeine-guaifenesin 10-100 mg/5 mL liquid
5 ml PO Q6H PRN (Reason: Cough) Qty: 200 0RF
Referrals:
Esha Rosenthal MD [Non-Admitting Privileges, Ophthalmology] - Call in 1-3 days for appt
Myesha Light MD [Active, Family Practice] - Call in 1-3 days for appt
Activity Restrictions/Additional Instructions:
Call Dr. Rosenthal tomorrow morning to arrange follow up. Return for any concerns.
Interventions
Interventions:
*Risk Screen - Suicide Last Done: 06/06/25 20:29
*General Assessment Last Done: 06/06/25 20:29
*Neglect/Abuse Screening Last Done: 06/06/25 20:29
*ED- Fall Risk Assessment Last Done: 06/06/25 23:38
*ED COVID-19 Vaccine History Last Done: 06/06/25 23:38
*ED Influenza Vaccine History Last Done: 06/06/25 23:38
Discharge Date and Time
Print Language: SERBIAN
[2025-06-07] MEDS: TENORMIN 25 MG PO (00:55)
== END 2025-06-07 01:03 | disposition home or self-care (01) ==
LOC: EMR 20:25
PROVIDERS: EMERGENCY PHYSICIAN Emergency Medicine; FAMILY PHYSICIAN Family Medicine
DX: H43.392 Other vitreous opacities, left eye (principal); I10 Essential (primary) hypertension; E11.9 Type 2 diabetes mellitus without complications; Z79.84 Long term (current) use of oral hypoglycemic drugs; Z85.3 Personal history of malignant neoplasm of breast
CPT/HCPCS: 99284; 70450

== ENCOUNTER 2025-06-21 12:10 | Emergency (ER) | payer OTHER, SELFPAY ==
[2025-06-21 12:13] VITALS: BP 186/95
[2025-06-21 12:32] LABS: Hematocrit 45.5 % (37.0-47.0); Hemoglobin 14.4 g/dL (12.0-16.0); Mean Corp Hgb Conc. 31.6 g/dL (33.0-37.0); Mean Corpuscular Volume 87.0 fL (81.0-99.0); Nucleated Red Blood Cells % 0 %; Platelet Count 218 10^3/uL (130-400); Red Cell Dist. Width 13.2 % (11.5-14.5)
[2025-06-21 12:57] LABS: ALT (SGPT) 36 U/L (0-35); AST (SGOT) 39 U/L (14-36); Albumin 4.9 g/dl (3.5-5.0); Alkaline Phosphatase 88 U/L (38-126); Blood Urea Nitrogen 10 mg/dl (7-17); Calcium 10.2 mg/dl (8.4-10.2); Carbon Dioxide 26 mmol/L (22-30); Chloride 102 mmol/L (98-107); Glucose 138 mg/dl (70-99); Potassium 3.9 mmol/L (3.5-5.1); Sodium 137 mmol/L (135-145); Total Protein 8.1 g/dl (6.3-8.2); eGFR > 60.00
--- NOTE | 2025-06-21 13:10 | ED.GENMED ---
History of Present Illness
General
Chief Complaint: Blood Pressure Problem
Source: patient
Exam Limitations: none
Time Seen by Provider: 06/21/25 13:07
Nursing documentation reviewed up to this point in time: agreed with
History of Present Illness
History of Present Illness:
60 yr old female presents to the ED for evaluation of elevated blood pressure. Her blood pressure has been elevated around 180s systolically to a max of 200 systolically for the past 4 days. She denies any associated headache shortness of breath
or chest pain. 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 Patient has no other complaints.
Past History
Past History
ED Past Medical History: Cancer (Breast), HTN, NIDDM and Other (Breast cancer, status postlumpectomy)
ED Past Surgical History: Gynecological (Left breast Lumpectomy), Orthopedic (Right rotator cuff repair) and Other (cataracts)
Social History
Tobacco: Non-smoker
Alcohol: None
Drug: None
Personal:
Living: with family
Employment: Other
Family History
Family History: Other
Phy Exam
General Physical Exam
General Presentation: no apparent distress
General age: appears stated age
General Skin: warm and dry
General Habitus: normal
General Mental: alert
General Hydration: appears well hydrated
Cardiovascular Exam
Cardiovascular Exam: regular rate/rhythm, no murmur and normal peripheral pulses
Pulmonary Exam
Pulmonary Exam: lungs clear and no respiratory distress
Neurological Exam
Neurological Exam: alert and oriented x3
Musculoskeletal Exam
Musculoskeletal Exam: full ROM
Skin Exam
Skin Exam: normal color and warm/dry
Psychiatric Exam
Psychiatric Exam: normal mood/affect
Course
Orders/Labs/Results
Orders:
Orders
06/21/25 12:15
EKG [Electrocardiogram (*1)] Urgent
Reason for Study: Hypertension, Benign
EKG- Treatment ONCE
06/21/25 12:25
CBC/With Diff [Complete Blood Count/With Diff] Urgent
CMP [Comprehensive Metabolic Panel] Urgent
06/21/25 13:10
Labetalol HCl [Trandate] 20 mg IV NOW STA
Losartan [Cozaar] 100 mg PO NOW STA
Abnormal Lab Results
06/21/25
12:25
MCHC 31.6 L g/dL
(33.0-37.0)
Glucose 138 H mg/dl
(70-99)
AST 39 H U/L
(14-36)
ALT 36 H U/L
(0-35)
06/21/25 12:25
06/21/25 12:25
Vital Signs
Initial and Last Documented VS:
Initial Vital Signs
Temp Pulse Resp BP Pulse Ox
97.8 F 75 15 186/95 97
06/21/25 12:13 06/21/25 12:13 06/21/25 12:13 06/21/25 12:13 06/21/25 12:13
Last Documented Vital Signs
Temp Pulse Resp BP Pulse Ox
97.8 F 75 15 144/81 97
06/21/25 12:13 06/21/25 12:13 06/21/25 12:13 06/21/25 13:42 06/21/25 13:10
MDM/Problems Addressed
Differential Diagnosis Includes:
Not limited to hypertension
MDM/Problems Addressed:
Patient is a 60-year-old female with known hypertension presents to the ER for elevated blood pressure for the past several days. 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 She also reports she has had [employer] coffee this week which she
is typically not a coffee drinker. She denies any headache or blurry vision. She denies any chest pain shortness of breath she is very well-appearing blood pressure minimally elevated here during repeat check however she is very well-appearing in
no acute distress stable for discharge home normal kidney function no acute findings on EKG. Discussed close monitoring and close outpatient follow-up family doctor.
Chronic conditions affecting care:
htn
*Pulse Oximetry
SaO2: 97
Oxygen Mode of Delivery: Room air
Patient hypoxic: no
*EKG
Interpreted by ED Provider?: Yes
Heart Rate: 72
Rate: normal
Rhythm: sinus
Ischemia: no ischemia
*Critical Care Note
Total Time (30-74mins, 75-104mins- exclusive of procedures): Not Applicable
ED Attending Note
-
Portions of this chart may have been created with voice recognition software.� Occasional wrong word or��sound alike� substitutions may have occurred due to the inherent limitations of voice recognition software.
Discharge Plan
Departure
Patient Disposition: Home (Routine Discharge)
Date of Disposition: 06/21/25
Time of Disposition: 13:41
Patient with high blood pressure during this ER visit?: Yes
Condition: Fair
Covid-19: Not Applicable
Discharge Problem:
HTN (hypertension)
Instructions: High Blood Pressure (DC), BLOOD PRESSURE
Prescriptions:
No Action
cephalexin 500 mg capsule
500 mg PO TID 7 Days Qty: 21 0RF
naproxen 500 mg tablet
500 mg PO BID 10 Days Qty: 20 0RF
anastrozole 1 mg Tablet
1 mg PO DAILY
atenolol 25 mg Tablet
25 mg PO DAILY
metformin 1,000 mg Tablet
1,000 mg PO BID
amlodipine-valsartan 5-160 mg Tablet
1 tab PO DAILY
aspirin 81 mg Tablet
81 mg PO DAILY
albuterol sulfate 90 mcg/actuation HFA aerosol inhaler
2 puff INHALATION Q4H PRN (Reason: SHORTNESS OF BREATH )
hydrochlorothiazide 12.5 mg capsule
12.5 mg PO DAILY Qty: 30 0RF
Fluzone Quad [id number] (PF) 60 mcg (15 mcg x 4)/0.5 mL Syringe
0.5 ml IM .ONCE Qty: 5 0RF
albuterol sulfate 2.5 mg /3 mL (0.083 %) solution for nebulization
2.5 mg inhalation Q4H PRN (Reason: shortness of breath or wheezing) Qty: 90 0RF
albuterol sulfate [Proventil HFA] 90 mcg/actuation HFA aerosol inhaler
2 puff inhalation Q6H PRN (Reason: shortness of breath or wheezing) Qty: 8.5 0RF
Paxlovid 300 mg (150 mg x 2)-100 mg tablets,dose pack
See Rx Instructions .ROUTE .COMPLEX Qty: 30 0RF
Rx Instructions:
take TWO 150 mg tablets of nirmatrelvir with ONE 100 mg tablet of ritonavir twice daily for 5 days
codeine-guaifenesin 10-100 mg/5 mL liquid
5 ml PO Q6H PRN (Reason: Cough) Qty: 200 0RF
atenolol 50 mg tablet
50 mg PO DAILY Qty: 30 0RF
Referrals:
Myesha Light MD [Family Provider, Family Practice]
Activity Restrictions/Additional Instructions:
As discussed continue to monitor your blood pressure once a day and closely follow-up with your family doctor in the next 2 to 3 days. Return if any worsening of symptoms of headaches chest pain shortness of breath or any further concerns.
Interventions
Interventions:
*Risk Screen - Suicide Last Done: 06/21/25 12:13
*General Assessment Last Done: 06/21/25 12:13
*Neglect/Abuse Screening Last Done: 06/21/25 12:13
*ED COVID-19 Vaccine History Last Done: 06/21/25 12:13
*ED Influenza Vaccine History Last Done: 06/21/25 12:13
Discharge Date and Time
Print Language: [id number]
[2025-06-21 13:42] VITALS: BP 144/81
== END 2025-06-21 13:55 | disposition home or self-care (01) ==
LOC: EMR 12:10
PROVIDERS: Emergency Medicine; EMERGENCY PHYSICIAN Emergency Medicine; FAMILY PHYSICIAN Family Medicine
DX: I10 Essential (primary) hypertension (principal); E11.9 Type 2 diabetes mellitus without complications; Z85.3 Personal history of malignant neoplasm of breast
CPT/HCPCS: 99284; 80053; 85025; 93005